=== PATIENT | male | born 1995 | race Caucasian/White ===

== ENCOUNTER 2024-08-01 16:39 | Inpatient (IN) ==
[2024-08-01] MEDS ORDERED: Lorazepam PYXIS KEY PRN (17:23)
[2024-08-01] MEDS: Haloperidol 5 mg/ml SDV IV/IM 5 MG/ML AMP IM ONE (17:38)
[2024-08-01] MEDS: LORazepam 2 mg VIAL 1 ml IM ONE (17:38)
[2024-08-01 18:00] LABS: ABS Basophils 0.1 10^3/uL (0.0-0.1); ABS Eosinophils 0.2 10^3/uL (0.0-0.5); ABS Lymphocytes 2.4 10^3/uL (1.0-4.8); ABS Monocytes 0.6 10^3/uL (0.0-1.1); ABS Neutrophils 8.5 10^3/uL (1.5-7.6); ABS Nucleated RBC 0.01 10^3/ul; Eosinophil % 1.4 %; Hematocrit 38.5 % (38-53); Hemoglobin 13.1 g/dL (13.2-16.3); Lymphocyte % 20.3 %; Mean Corpuscular Volume 91.2 fL (80-97); Mean Platelet Volume 7.5 fL (7.5-11.2); Nucleated Red Blood Cells % 0.1 %/100WBC (0.0-0.8); Platelet Count 244 10^3/uL (150-450); Red Blood Count 4.22 10^6/uL (4.06-5.63); Red Cell Distribution Width 13.2 % (12-17); White Blood Count 11.7 10^3/uL (3.6-10.2)
[2024-08-01 18:30] LABS: ALT 38 U/L (7-52); AST 32 U/L (13-39); Acetaminophen < 15 mcg/mL; Albumin 4.5 g/dL (3.2-5.2); Albumin/Globulin Ratio 2.6 (1-3); Alcohol, S < 13 mg/dL (<13); Alkaline Phosphatase 64 U/L (35-149); Anion Gap 8 mmol/L (2-16); Blood Urea Nitrogen 20 mg/dL (6-24); CO2 Carbon Dioxide 25 mmol/L (22-32); Calcium 9.3 mg/dL (8.6-10.3); Chloride 107 mmol/L (101-111); Creatinine, Serum 0.93 mg/dL (0.67-1.17); Globulin 1.7 g/dL (2-4); Glucose 117 mg/dL (70-100); Potassium 3.7 mmol/L (3.5-5.0); Salicylate < 2.50 mg/dL (<30); Sodium 140 mmol/L (135-145); Total Bilirubin 0.4 mg/dL (0.2-1.0); Total Protein 6.2 g/dL (6.4-8.9)
[2024-08-01 18:44] LABS: TSH Ultra Thyroid Stim Horm 1.76 mcIU/mL (0.34-5.60)
[2024-08-01 22:03] LABS: Urine Appearance Clear; Urine Bilirubin Negative (Negative); Urine Blood Negative (Negative); Urine Color Light-Yellow; Urine Glucose Negative (Negative); Urine Ketones Negative (Negative); Urine Nitrite Negative (Negative); Urine Protein Negative (Negative); Urine Specific Gravity 1.024 (1.002-1.030); Urine Urobilinogen Negative (Negative); Urine pH 6.5 (5.0-8.0)
[2024-08-01] MEDS ORDERED: Al Hydrox/Mg Hydrox/Simet LIQ 30 ML UDC PO PRN (22:03)
[2024-08-01 22:14] LABS: Urine Benzodiazepine Screen None Detected (None Detect); Urine Cannabinoids Screen Presumptive Positive (None Detect); Urine Opiates Screen None Detected (None Detect)
[2024-08-02] MEDS: Vitamin THERAPEUTIC TAB PO SCH (09:11)
[2024-08-02] MEDS: Nicotine GUM 2MG FRUIT FLAVOR PO PRN (09:12)
[2024-08-08] MEDS: ARIPiprazole LAUROXIL INITIO 675 MG/2.4 ML SYRINGE IM ONE (16:50)
[2024-08-08] MEDS: ARIPiprazole LAUROXIL 882mg/3.2 ml SYRINGE IM ONE (16:58)
[2024-08-08] MEDS: Nicotine GUM 4MG FRUIT FLAVOR PO PRN (16:59)
[2024-08-16 08:37] LABS: HDL Cholesterol 46.4 mg/dL
[2024-08-30 21:48] VITALS: BP 129/82
== END 2024-09-01 11:15 | DRG 750 ==
LOC: ED 16:39 → EDHOLD 21:49 → BSU 23:15
PROVIDERS: ADMIT Psychiatry & Neurology Psychiatry; ATTEND Psychiatry & Neurology Psychiatry